=== PATIENT | female | born 1950 | race African-American/Black ===

== ENCOUNTER → 2017-05-22 | Outpatient (CLI) | payer BC ==
[~2017-05-22] MED LIST: BP MED; VERAPAMIL ER180 MG PO
--- NOTE | ~2017-05-22 | US77 ---
[facility] A Service of [facility] RADIOLOGY TEXT RESULTS PATIENT: ZAYNAB LUGO LOCATION: [facility] : 54 UNIT #: [id number] AGE: [address]: Joan Arreguin MD SEX: F ORDER DR: [id number] [facility] [address] [place], [place] [address] [id number] MR#: [id number] Acc #: [id number] NAME: ZAYNAB LUGO : 1950 SEX: F STUDY DATE/TIME: 05/22/2017 15:38 UNIT: US ROOM: STUDY DESCRIPTION: US Kidney Bilateral Complete Attending Physician: Joan Arreguin M.D. Referring Physician: Joan Arreguin M.D. Ordering Physician: Joan Arreguin M.D. Primary Care Physician: Andrea Moore M.D. MEDICAL IMAGING REPORT This report is preliminary unless electronic signature is present EXAM Renal ultrasound INDICATIONS Renal insufficiency. BUN 19, creatinine 1.5, eGFR 39. TECHNIQUE Trent-scale and Doppler imaging of the kidneys and bladder. COMPARISON None. FINDINGS Right kidney measures 12.5 cm in length. Several cysts in the right kidney. A cyst in the upper pole measures 4.5 cm. A cyst towards the lower pole measures 4.7 cm. Unremarkable bladder. Left kidney measures 11.2 cm in length. IMPRESSION Right renal cyst. Otherwise, negative renal ultrasound. Dictated by... Jim Venegas M.D. THIS IS AN ELECTRONICALLY VERIFIED REPORT Jim Venegas M.D. at 05/26/2017 11:08 AM EEMoreno/jemma TD: 05/22/2017 22:45 JOB #: [id number] [facility] A Service of [facility] RADIOLOGY TEXT RESULTS PATIENT: ZAYNAB LUGO LOCATION: [facility] : 54 UNIT #: [id number] AGE: [address]: Joan Arreguin MD SEX: F ORDER DR: MEDICAL IMAGING REPORT Page 1 of 1 COPY
== END | disposition home or self-care (01) ==
LOC: CGUS 04-29 12:45
DX: N28.9 Disorder of kidney and ureter, unspecified (principal); N20.0 Calculus of kidney
CPT/HCPCS: 76770